=== PATIENT | male | born 1965 | race Caucasian/White ===

== ENCOUNTER 2016-10-28 13:46 | Emergency (ER) | payer OTHER ==
[2016-10-28] MEDS ORDERED: HYDROMORPHONE 1 MG/ML SYRINGE IV ONE (13:56)
[2016-10-28] MEDS ORDERED: SODIUM CHLORIDE 0.9% FLUSH 10 ML SOL IV PRN (13:56)
[2016-10-28] MEDS ORDERED: SODIUM CHLORIDE 0.9% 1000ML 1,000 ML IV ONE (13:56)
[2016-10-28] MEDS ORDERED: HYDROMORPHONE 1 MG/ML SYRINGE ONE (13:58)
[2016-10-28] MEDS ORDERED: TDAP VACCINE 0.5 ML SUS IM ONE ×2 (14:07→14:08)
[2016-10-28 14:09] LABS: BASOPHILS % (AUTO) 2 % (0-3); EOSINOPHILS % (AUTO) 2 % (0-9); HEMATOCRIT 44 % (39-53); MEAN CORPUSCULAR VOLUME 85 fL (80-100); MONOCYTES % (AUTO) 10.7 % (0-12); NEUTROPHILS % (AUTO) 54.4 % (37-80)
[2016-10-28 14:18] LABS: ALBUMIN 3.6 gm/dl (3.4-5.0); CALCIUM 8.7 mg/dl (8.5-10.1); MAGNESIUM 1.9 mg/dl (1.8-2.4); POTASSIUM 3.8 mMol/L (3.5-5.1)
[2016-10-28 14:22] VITALS: BP 150/89; PULSE 86; RESP 14; TEMP 98.8; O2SAT 96
== END 2016-10-28 15:27 | disposition home or self-care (01) | DRG 935 ==
LOC: ED 13:46
DX: T23.151A Burn of first degree of right palm, initial encounter (principal); T31.0 Burns involving less than 10% of body surface; X08.8XXA Exposure to other specified smoke, fire and flames, initial encounter; Y99.0 Civilian activity done for income or pay
CPT/HCPCS: 80053; 83735; 84100; 85025; 90715; 93005; 99284; J1170